=== PATIENT | female | born 1985 | race Two or more races ===

== ENCOUNTER → 2023-12-19 08:14 | Outpatient (REF) | payer OTHER, SELFPAY | LOC: HWRCS 08:14 | PROVIDERS: ATTENDING PHYSICIAN Internal Medicine Cardiovascular Disease; FAMILY PHYSICIAN Family Medicine | DX: R00.2 Palpitations (principal) | CPT/HCPCS: 93306 ==

== ENCOUNTER 2024-04-10 17:45 | Emergency (ER) | payer OTHER, SELFPAY ==
[2024-04-10 18:00] VITALS: BP 174/100
[2024-04-10 18:13] LABS: % Basophils 0.5 % (0-2); % Eosinophils 1.1 % (0-6); % Immature Granulocytes 0.3 % (0-0.5); % Lymphocytes 41.3 % (20.5-51.1); % Monocytes 8.5 % (1.7-9.3); % Neutrophils 48.3 % (42.2-75.2); Absolute Eosinophils 0.1 10^3/uL (0-0.7); Absolute Lymphocytes 2.6 10^3/uL (1.2-3.4); Absolute Monocytes 0.5 10^3/uL (0.1-0.6); Absolute Neutrophils 3.1 10^3/uL (1.4-6.5); Hematocrit 35.8 % (37.0-47.0); Hemoglobin 12.3 g/dL (12.0-16.0); Mean Corp Hgb Conc. 34.4 g/dL (33.0-37.0); Mean Corpuscular Hgb 28.3 pg (27.0-31.0); Mean Corpuscular Volume 82.5 fL (81.0-99.0); Mean Platelet Volume 9.5 fL (7.4-10.4); Nucleated Red Blood Cells % 0 %; Platelet Count 323 10^3/uL (130-400); Red Blood Cell Count 4.34 10^6/uL (4.20-5.40); Red Cell Dist. Width 13.7 % (11.5-14.5); White Blood Cell Count 6.3 10^3/uL (4.8-10.8)
[2024-04-10 18:28] LABS: ALT (SGPT) 20 U/L (0-35); AST (SGOT) 27 U/L (14-36); Albumin 4.7 g/dl (3.5-5.0); Alkaline Phosphatase 61 U/L (38-126); Blood Urea Nitrogen 13 mg/dl (7-17); Calcium 9.6 mg/dl (8.4-10.2); Carbon Dioxide 24 mmol/L (22-30); Chloride 105 mmol/L (98-107); Glucose 100 mg/dl (70-99); Potassium 4.1 mmol/L (3.5-5.1); Sodium 137 mmol/L (135-145); Total Bilirubin 0.5 mg/dl (0.2-1.3); Total Protein 7.7 g/dl (6.3-8.2); eGFR > 60.00
[2024-04-10 18:38] LABS: Troponin I < 0.012 ng/ml
[2024-04-10 18:46] VITALS: BP 164/88
[2024-04-10 19:00] VITALS: BP 155/98
--- NOTE | 2024-04-10 19:08 | ED.GENMED ---
History of Present Illness
General
Chief Complaint: Chest Pain
Source: patient
Exam Limitations: none
Time Seen by Provider: 04/10/24 18:55
History of Present Illness
History of Present Illness:
This is a 38 year old female that comes in with c/o chest pain. States that she just bent over to put groceries away and she got this pain in the left arm that shot up into her chest and her left shoulder and into her ear. States that this made her
anxious and she felt like she has heart burn and nausea. States that she also felt lightheaded. States that she does have some back problems and took Ibuprofen this morning for pain. Denies any fever, chills, abd pain, vomiting, diarrhea,
headache, urinary burning.
Past History
Past History
ED Past Medical History: None and Psychiatric (Anxiety); Negative Asthma, HTN, Hypercholesterolemia or NIDDM
ED Past Surgical History: (X 2)
Social History
Tobacco: Non-smoker
Alcohol: Occasional
Personal:
Living: with family
Review of Systems
Review of Systems
All Other Systems: ROS reviewed and negative except as documented in HPI and ROS
Constitutional: Reports no symptoms; Denies fever or chills
EENT: Reports no symptoms
Respiratory: Reports trouble breathing; Denies cough
Cardiac: Reports chest pain
ABD/GI: Reports nausea; Denies abdominal pain, vomiting or diarrhea
: Reports no symptoms; Denies dysuria, frequency or urgency
Musculoskeletal: Reports no symptoms
Skin: Reports no symptoms
Neurological: Reports other (Lightheaded); Denies dizzy or headache
Psychiatric: Reports no symptoms
Phy Exam
General Physical Exam
General Presentation: well appearing and no apparent distress
General age: appears stated age
General Skin: warm and dry
General Habitus: obese
General Mental: alert
General Hydration: dry mucous membranes
ENT Exam
ENT Exam: TM's normal, pharynx normal and neck supple
Eye Exam
Eye Exam: EOMI
Cardiovascular Exam
Cardiovascular Exam: regular rate/rhythm, no edema, no murmur and normal peripheral pulses
Pulmonary Exam
Pulmonary Exam: lungs clear, no respiratory distress, no rales, chest non tender, no crackles, no rhonchi, no wheezing and no cough
Gastrointestinal Exam
Gastrointestinal Exam: normal bowel sounds, non tender, soft, no organomegaly, no pulsatile mass, non distended and other (Obese)
Musculoskeletal Exam
Musculoskeletal Exam: full ROM and no edema
Skin Exam
Skin Exam: normal color, warm/dry, no rash and no petechia
Psychiatric Exam
Psychiatric Exam: normal mood/affect
Scores
Heart Score for Chest Pain Patients
STEMI patient?: No
History: Slightly or Non-Suspicious
ECG: Normal
Age: </= 45 years
Risk Factors: No Risk Factors
Troponin: </= Normal Limit
Heart Score for Chest Pain Patients: 0
Heart Score Risk: 2.5% MACE over next 6 weeks
Course
Orders/Labs/Results
Orders:
Orders
04/10/24 17:48
EKG [Electrocardiogram (*1)] Urgent
Reason for Study: Chest Pain
EKG- Treatment ONCE
04/10/24 18:08
Complete Blood Count/With Diff Urgent
Comprehensive Metabolic Panel Urgent
HCG, Serum Qualitative Screen Urgent
Comment: ADD ON
Troponin I Urgent
04/10/24 19:06
0.9% Sodium Chloride 1000 ml [Nss] 1,000 ml IV BOLUS
04/10/24 19:07
Electrocardiogram (*1) Urgent
Reason for Study: Chest Pain
Other Reason for Exam: Repeat with Tropnin
EKG- Treatment ONCE
CR Chest - 2 Views Urgent
Comment:
Reason For Exam: Chest pain, SOB
04/10/24 19:14
Add On- LAB Urgent
Tests Added?: HCG
04/10/24 19:56
D-Dimer Urgent
04/10/24 21:27
Troponin I Urgent
Abnormal Lab Results
04/10/24
18:08
Hct 35.8 L %
(37.0-47.0)
Glucose 100 H mg/dl
(70-99)
04/10/24 18:08
04/10/24 18:08
Glucose nonfasting. Troponin <0.012, D-dimer 0.50, HCG negative
Second Troponin <0.012
Vital Signs
Initial and Last Documented VS:
Initial Vital Signs
Temp Pulse Resp Pulse Ox
98.6 F 68 17 100
04/10/24 17:54 04/10/24 17:54 04/10/24 17:54 04/10/24 17:54
Last Documented Vital Signs
Temp Pulse Resp BP Pulse Ox
98.6 F 65 20 154/87 98
04/10/24 17:54 04/10/24 20:15 04/10/24 20:15 04/10/24 20:00 04/10/24 20:15
MDM/Problems Addressed
Differential Diagnosis Includes:
Anxiety, PE, GERD
MDM/Problems Addressed:
This is a 38 year old female that comes in with c/o pain that shot up her left arm and into her chest, left shoulder into her neck and left ear. Stats that she was just bending over to put groceries away. States that this caused her anxiety to go up
so she came in to make sure she is not having a heart attack.
Will get labs, Chest X-ray and give IV fluids.
Back into see patient. Patient states that she is feeling better and smiling. Explained that she may have just pulled a muscle when she was bending over. Encouraged patient to follow up with the family doctor. Do not feel that this is a PE as
patient is not tachycardic or Hypoxic. Return with any concerns.
Repeat ECG= Rate 65, NSR, Normal axis. Normal QRS, Negative for ischemia. T wave inversion, III, aVR, V1, V3, Checked by Dr. Glynn
Chronic conditions affecting care: Psychiatric illness (Anxiety)
Acute Exacerbation and/or Progression of Chronic Illness: Psychiatric illness (Anxiety)
*Radiology
Radiology exam reviewed: radiology read reviewed (Chest-Normal heart size witihout evidence for acute pulmonary edema. Mld to moderate evaluation of the anterior right hemidiaphram. )
*Pulse Oximetry
Patient hypoxic: no
*EKG
Interpreted by ED Provider?: Yes
Heart Rate: 68
Rate: normal
Rhythm: sinus
Hamilton: normal axis
Interval: normal interval
QRS Pattern: normal QRS
Ischemia: no ischemia
*Fruit [employer] Interpretation
Rate: normal
Heart Rate: 67
Rhythm: sinus
*Critical Care Note
Total Time (30-74mins, 75-104mins- exclusive of procedures): Not Applicable
ED Attending Note
-
Portions of this chart may have been created with voice recognition software.� Occasional wrong word or��sound alike� substitutions may have occurred due to the inherent limitations of voice recognition software.
Discharge Plan
Departure
Patient Disposition: Home (Routine Discharge)
Date of Disposition: 04/10/24
Time of Disposition: 22:24
Patient with high blood pressure during this ER visit?: Yes
Condition: Good
Covid-19: Not Applicable
Discharge Problem:
Pulled muscle, Chest pain
Instructions: Back Muscle Strain (DC), Chest Pain PCP Follow Up, BLOOD PRESSURE
Referrals:
Tenthoff,Kalyani Blackmon MD [Family Provider] - Follow up in 2-3 days
Activity Restrictions/Additional Instructions:
As discussed, your blood work is normal along with your chest x-ray and ECG. This may have been a muscle strain when you bent over. You may use Tylenol or Ibuprofen for any discomfort. Follow up with the family doctor for recheck. IF YOU HAVE ANY
OTHER CONCERNS PLEASE RETURN TO THE EMERGENCY ROOM.
Interventions
Interventions:
*Risk Screen - Suicide Last Done: 04/10/24 17:54
*General Assessment Last Done: 04/10/24 17:54
*Neglect/Abuse Screening Last Done: 04/10/24 17:54
ED- Fall Risk Assessment Last Done: 04/10/24 19:00
ED- Cardiac Assessment Last Done: 04/10/24 19:00
Discharge Date and Time
Print Language: TUNISIAN
[2024-04-10] MEDS: NSS 1000 IV (19:30)
[2024-04-10 19:48] LABS: HCG, Serum Qualitative Screen Negative
[2024-04-10 20:00] VITALS: BP 154/87
[2024-04-10 21:00] VITALS: BP 144/77
[2024-04-10 21:59] LABS: Troponin I < 0.012 ng/ml
[2024-04-10 22:00] VITALS: BP 134/75
== END 2024-04-10 22:34 | disposition home or self-care (01) ==
LOC: EMR 17:45
PROVIDERS: Clinical Nurse Specialist Family Health; Emergency Medicine; EMERGENCY PHYSICIAN Emergency Medicine; FAMILY PHYSICIAN Family Medicine
DX: R07.89 Other chest pain (principal); R11.0 Nausea; R42 Dizziness and giddiness; M79.602 Pain in left arm; K30 Functional dyspepsia; F41.9 Anxiety disorder, unspecified; R03.0 Elevated blood-pressure reading, without diagnosis of hypertension; Z88.1 Allergy status to other antibiotic agents; Z91.018 Allergy to other foods; Z91.010 Allergy to peanuts; Z91.048 Other nonmedicinal substance allergy status
CPT/HCPCS: 99284; 96360; 71046; 80053; 84484; 84703; 85025; 85379; 93005